=== PATIENT | male | born 1975 ===

== ENCOUNTER 2018-03-18 10:22 | Day surgery (SDC) | payer BC ==
[2018-03-10 14:03] VITALS: BMI 22.6
[2018-03-18] MEDS ORDERED: Bupivacaine 0.25% 20 ML INJ IJ ONE (11:34)
[2018-03-18] MEDS ORDERED: Lidocaine/Epinephrine 1% 1:100000 10 ML IJ ONE (11:34)
[2018-03-18] MEDS ORDERED: ceFAZolin 1 gm in NS 2 GM/200 ML BAG IVPB ONE (11:34)
[2018-03-18] MEDS ORDERED: Sodium Chloride 0.9% 40 ML IV ONE (11:35)
[2018-03-18] MEDS ORDERED: Propofol 10 mg/ml Inj (20 ML) ONE (11:51)
[2018-03-18] MEDS ORDERED: Midazolam 2 MG/2 ML VIAL ONE (11:52)
[2018-03-18] MEDS ORDERED: Bupivacaine Liposomal Inj 20 ml INFIL ONE (12:38)
[2018-03-18] MEDS ORDERED: Morphine 4 MG/ML VIAL ONE (14:07)
[2018-03-18] MEDS ORDERED: HYDROmorphone 0.5 mg/0.5 ml ISec IVP PRN (14:34)
[2018-03-18] MEDS ORDERED: Oxycodone/Acetaminophen 5/325 mg Tab PO PRN (14:41)
--- NOTE | 2018-03-18 14:41 | PCM.SURG1 ---
Surgeon's Initial Post Op Note - Surgeon's Notes Surgeon: Dr. Miguel Crtts: Dr. Colunga PGY1 Type of Anesthesia: General Endo, Block Regional Pre-Operative Diagnosis: Bilateral inguinal hernias Operative Findings: see operative note Post-Operative Diagnosis: same Operation Performed: robot assisted bilarteral inguinal hernia repair with mesh Specimen/Specimens Removed: cord lipoma of the left hernia Estimated Blood Loss: EBL {In ML}: 10 Blood Products Given: N/A Drains Used: No Drains Post-Op Condition: Good Date of Surgery/Procedure: 03/18/18 Time of Surgery/Procedure: 14:41
[2018-03-18] MEDS ORDERED: Lactated Ringer's 1,000 ML IV ONE (15:12)
--- NOTE | 2018-03-18 16:48 | OP ---
PROCEDURE DATE: 03/18/2018 PREOPERATIVE DIAGNOSIS: Bilateral inguinal hernia. POSTOPERATIVE DIAGNOSIS: Bilateral direct inguinal hernia. SECOND DIAGNOSIS: Lipoma of the left spermatic cord. PROCEDURES DONE: 1. Robotic bilateral inguinal hernia repair with mesh. 2. Robotic excision of lipoma of the left spermatic cord. 3. Laparoscopic bilateral transversus abdominis plane block placement. SURGEON: The procedure was done by me Dr. Miguel. ASSISTANTS: WILVER Mcmanus and Gonzales Colunga DO, PGY-1 resident. ANESTHESIA: General endotracheal tube anesthesia. ESTIMATED BLOOD LOSS: Around 10 mL. DRAIN: None. PATHOLOGY: Lipoma of the spermatic cord on the left side was sent for the pathology. COMPLICATIONS: None. INTRAOPERATIVE FINDINGS: The patient had a bilateral direct inguinal hernia and also the lipoma of the left spermatic cord, and on intraoperative steps, this 42-year-old male who was diagnosed with bilateral inguinal hernia and the patient was consented for the robotic bilateral inguinal hernia repair with mesh, brought to the OR, placed supine on operating table. After induction of the anesthesia, the abdomen was prepped and draped in the usual sterile fashion. A supraumbilical transverse incision was made using the open technique. Peritoneal cavity was entered. Pneumo was created. Another three 8-mm port was placed in upper abdomen. Robot was brought in. Camera arm as well as arm 1 and arm 2 were docked, and the peritoneum was dissected from the left ASIS up to the right ASIS, and the midline dissection was carried down deep up to the space of Retzius. Laterally on the right side, the peritoneum was dissected from the vas deferens and spermatic cord vessels, and hernial sac was reduced back into the peritoneal cavity, and the inferior dissection was done up to the pelvic brim. Now, the similar dissection was done on the left side and the peritoneum was dissected from the lateral abdominal wall structures as well as vas deferens and spermatic cord vessels, and the dissection was carried down deep up to the pelvic brim, and now, the bilateral right and left anatomical mesh was placed. An approximately 8 x 10 cm mesh was placed on both sides, and then, all the margin was trimmed, and after proper placement of the mesh, the peritoneum was sutured with a 0 Vicryl interrupted suture as well as a 3-0 PDS continuous suture, and the laparoscopic bilateral TAP block was given. The patient also has a lipoma of the left spermatic cord that was also excised, and it was sent off the table for the pathology. There was a proper hemostasis in each and every part of the procedure. All the instruments were taken out under vision. Pneumo was deflated. The umbilical port site was closed in two layers; the fascia with 0 Vicryl interrupted sutures and skin with 4-0 Monocryl, and dry sterile dressing was applied. The patient tolerated procedure well. Count of instrument was correct. There was no apparent complication. Markel Miguel MD
[2018-03-18 17:55] VITALS: BP 114/70; PULSE 68; RESP 18; TEMP 98; O2SAT 99
== END 2018-03-18 18:25 | disposition home or self-care (01) ==
LOC: C.SDS 10:22
PROVIDERS: ATTEND Surgery Surgical Critical Care
DX: K40.20 Bilateral inguinal hernia, without obstruction or gangrene, not specified as recurrent (principal); D17.6 Benign lipomatous neoplasm of spermatic cord
CPT/HCPCS: 49650; 88304; C1781; J0690; J2250; J2270; J2405; J2704; J2765; J3010; J7120